=== PATIENT | male | born 1960 | race Caucasian/White ===

== ENCOUNTER 2017-05-31 14:05 | Inpatient (IN) | payer OTHER ==
[~2017-05-31] VITALS: Ht 170.2 cm; Wt 118.0 kg
[2017-05-31] VITALS (9 sets, daily range): BP systolic 112–197; BP diastolic 67–99
[2017-05-31 14:28] LABS: BASOPHIL COUNT 0.1 K/uL (0-0.1); EOSINOPHIL (%) 2.1 % (0-5); EOSINOPHIL COUNT 0.4 K/uL (0-0.3); HEMATOCRIT 50.4 % (38.0-50.0); IMMATURE GRANULOCYTE (%) 0.6 % (0.0-0.7); IMMATURE GRANULOCYTE COUNT 0.1 K/uL; INSTRUMENT ABS NEUTROPHIL CT 9.5 K/uL; LYMPHOCYTE COUNT 5.2 K/uL (1.0-2.8); MCH 26.8 PG (29.0-34.0); MCHC 32.7 G/DL (30.0-36.0); MEAN PLAT.VOLUME 12.5 uM^3 (9.0-12.4); MONOCYTE (%) 8.5 % (3-12); MONOCYTE COUNT 1.4 K/uL (0-0.8); NEUTROPHIL (%) 57.1 % (45-76); NEUTROPHIL COUNT 9.5 K/uL (1.8-6.4); PLATELET COUNT 348 K/uL (156-360); RBC DIS.WIDTH-CV 13.3 % (11.8-14.6); RBC DIS.WIDTH-SD 39.1 % (39-53); RED BLOOD COUNT 6.15 M/uL (4.00-5.50); WHITE BLOOD COUNT 16.7 K/uL (4.1-10.2)
[2017-05-31 15:20] LABS: CHLORIDE 90 mEq/L (99-109); POTASSIUM 2.6 mEq/L (3.7-5.4); SODIUM 134 mEq/L (136-147)
[2017-05-31 15:23] LABS: ANION GAP 25 MEQ/L (2-14)
[2017-05-31 15:26] LABS: GFR ESTIMATE (CALCULATED) 37 mL/min/
[2017-05-31 15:27] LABS: UREA NITROGEN (BUN) 17 mg/dL (9-23)
[2017-05-31 15:28] LABS: ADD MIUA? YES; BILIRUBIN NEGATIVE; BLOOD SMALL; COLOR STRAW ((YELLOW)); GLUCOSE (STRIP) >=500; KETONES NEGATIVE; LEUKOCYTES NEGATIVE; NITRITE NEGATIVE; PROTEIN (STRIP) 100; UROBILINOGEN 0.2 MG/DL (0.2-1.0)
[2017-05-31 15:30] LABS: BACTERIA NONE SEEN /HPF; EPITHELIAL CELLS NONE SEEN /HPF; MUCUS NONE SEEN /LPF; RED BLOOD CELLS 0-5 /HPF (0-5); WHITE BLOOD CELLS 0-5 /HPF (0-5)
[2017-05-31 15:31] LABS: GLUCOSE 761 mg/dL (70-99)
[2017-05-31 15:33] LABS: TROP-I INTERPRETATION NEGATIVE; TROPONIN-I 0.04 ng/mL (0.0-0.30)
[2017-05-31] MEDS ORDERED: BUPROPION XL300 MG PO (16:43)
[2017-05-31] MEDS ORDERED: BUPROPION XL150 MG PO (16:43)
[2017-05-31 17:01] LABS: BICARBONATE 29.4 mEq/L (22-26); CARBOXY HGB 2.2 % (0-5); METHEMOGLOBIN 1.2 % (0-1.5); PCO2 57 mm Hg (35-45); PO2 96 mm Hg (80-100); pH 7.32 (7.35-7.45)
[2017-05-31 17:02] LABS: COMMENTS - BLOOD GASES C+; DEVICE VENT; FI02 50 %; MECHANICAL RATE 14 resp/min; MODE AC; PEEP 5 CM/H20; SITE RR; TIDAL VOLUME 500 ML; TOTAL RESP RATE 18 resp/min
[2017-05-31 19:24] LABS: METH RESISTANT S AUREUS PCR NEGATIVE (NEGATIVE)
[2017-05-31 19:25] LABS: PROBE CHECK PASS; SPECIMEN PROCESSING CONTROL PASS
[2017-05-31 20:31] LABS: ANION GAP 14 MEQ/L (2-14); CHLORIDE 100 MEQ/L (99-109); POTASSIUM 2.8 MEQ/L (3.7-5.4); SAMPLE HEMOLYSIS CHECK 0; SAMPLE ICTERIC CHECK 0; SAMPLE LIPEMIA CHECK 0; SODIUM 135 MEQ/L (136-147)
[2017-05-31 20:39] LABS: GFR ESTIMATE (CALCULATED) > 59 mL/min/; GLUCOSE 529 mg/dL (70-99); UREA NITROGEN (BUN) 16 mg/dL (9-23)
[2017-06-01] VITALS (20 sets, daily range): BP systolic 104–198; BP diastolic 53–105
[2017-06-01 00:28] LABS: POINT-OF-CARE METER ID UU14174217
[2017-06-01 03:06] LABS: GFR ESTIMATE (CALCULATED) 39 mL/min/; GLUCOSE 290 mg/dL (70-99); UREA NITROGEN (BUN) 17 mg/dL (9-23)
[2017-06-01 03:07] LABS: CHLORIDE 104 MEQ/L (99-109); POTASSIUM 2.1 MEQ/L (3.7-5.4); SODIUM 142 MEQ/L (136-147)
[2017-06-01 03:08] LABS: ANION GAP 13 MEQ/L (2-14)
[2017-06-01 04:21] LABS: POINT-OF-CARE METER ID UU13113748
[2017-06-01 04:33] LABS: SODIUM 141 mEq/L (136-147)
[2017-06-01 04:35] LABS: GLUCOSE 156 mg/dL (70-99)
[2017-06-01 04:37] LABS: ANION GAP 12 MEQ/L (2-14)
[2017-06-01 04:39] LABS: GFR ESTIMATE (CALCULATED) 35 mL/min/
[2017-06-01 04:40] LABS: UREA NITROGEN (BUN) 19 mg/dL (9-23)
[2017-06-01 04:41] LABS: CHLORIDE 105 mEq/L (99-109); POTASSIUM 2.3 mEq/L (3.7-5.4)
[2017-06-01 05:27] LABS: POINT-OF-CARE METER ID UU13113748
[2017-06-01 06:05] LABS: HEMATOCRIT 36.9 % (38.0-50.0); MCH 26.7 PG (29.0-34.0); MCHC 33.9 G/DL (30.0-36.0); MCV 78.7 FL (86-99); RBC DIS.WIDTH-CV 13.2 % (11.8-14.6); RBC DIS.WIDTH-SD 37.4 % (39-53); WHITE BLOOD COUNT 13.9 K/uL (4.1-10.2)
[2017-06-01 06:15] LABS: CHLORIDE 104 mEq/L (99-109); SODIUM 141 mEq/L (136-147)
[2017-06-01 06:17] LABS: GLUCOSE 165 mg/dL (70-99)
[2017-06-01 06:18] LABS: ANION GAP 11 MEQ/L (2-14)
[2017-06-01 06:21] LABS: GFR ESTIMATE (CALCULATED) 33 mL/min/
[2017-06-01 06:22] LABS: UREA NITROGEN (BUN) 19 mg/dL (9-23)
[2017-06-01 06:23] LABS: POTASSIUM 2.4 mEq/L (3.7-5.4)
[2017-06-01 06:48] LABS: RED BLOOD COUNT 4.69 M/uL (4.00-5.50)
[2017-06-01 07:41] LABS: POINT-OF-CARE METER ID UU13113748
[2017-06-01 08:36] LABS: POINT-OF-CARE METER ID UU13113748
[2017-06-01 08:44] LABS: PLAT.SUFFICIENCY ADEQUATE
[2017-06-01 08:55] LABS: MEAN PLAT.VOLUME 10.5 uM^3 (9.0-12.4); PLATELET COUNT 239 K/uL (156-360)
[2017-06-01 09:09] LABS: ANION GAP 11 MEQ/L (2-14); CHLORIDE 105 MEQ/L (99-109); GFR ESTIMATE (CALCULATED) 33 mL/min/; GLUCOSE 175 mg/dL (70-99); POTASSIUM 2.5 MEQ/L (3.7-5.4); SAMPLE HEMOLYSIS CHECK 0; SAMPLE ICTERIC CHECK 0; SAMPLE LIPEMIA CHECK 0; SODIUM 142 MEQ/L (136-147); UREA NITROGEN (BUN) 20 mg/dL (9-23)
[2017-06-01 09:50] LABS: POINT-OF-CARE METER ID UU13113748
[2017-06-01 10:35] LABS: POINT-OF-CARE METER ID UU13113748
[2017-06-01 13:03] LABS: ANION GAP 10 MEQ/L (2-14); CHLORIDE 106 MEQ/L (99-109); POINT-OF-CARE METER ID UU13113748; POTASSIUM 2.6 MEQ/L (3.7-5.4); SAMPLE HEMOLYSIS CHECK 1; SAMPLE ICTERIC CHECK 0; SAMPLE LIPEMIA CHECK 0; SODIUM 142 MEQ/L (136-147)
[2017-06-01 13:08] LABS: GFR ESTIMATE (CALCULATED) 26 mL/min/; GLUCOSE 126 mg/dL (70-99); UREA NITROGEN (BUN) 22 mg/dL (9-23)
[2017-06-01 14:10] LABS: POINT-OF-CARE METER ID UU13113748
[2017-06-01 14:36] LABS: MAGNESIUM 2.3 mg/dl (1.3-2.7)
[2017-06-01 15:21] LABS: Estimated Average Glucose 315 mg/dL (70-123); HEMOGLOBIN A1c (GLYCOHEMOGLOB) 12.6 % HGB (Below 5.7)
[2017-06-01 16:38] LABS: ANION GAP 11 MEQ/L (2-14); CHLORIDE 105 MEQ/L (99-109); POTASSIUM 2.9 MEQ/L (3.7-5.4); SAMPLE HEMOLYSIS CHECK 0; SAMPLE ICTERIC CHECK 0; SAMPLE LIPEMIA CHECK 0; SODIUM 140 MEQ/L (136-147)
[2017-06-01 16:43] LABS: GFR ESTIMATE (CALCULATED) 23 mL/min/; UREA NITROGEN (BUN) 23 mg/dL (9-23)
[2017-06-01 16:58] LABS: GLUCOSE 200 mg/dL (70-99)
[2017-06-01 17:25] LABS: POINT-OF-CARE METER ID UU13113748
[2017-06-01 18:34] LABS: POINT-OF-CARE METER ID UU13113748
[2017-06-01 19:20] LABS: POINT-OF-CARE METER ID UU13113748
[2017-06-01 20:25] LABS: POINT-OF-CARE METER ID UU13113748; POINT-OF-CARE USER ID 609231305
[2017-06-01 21:37] LABS: POINT-OF-CARE METER ID UU13113748
[2017-06-01 22:31] LABS: POINT-OF-CARE METER ID UU13113748
[2017-06-01 23:27] LABS: POINT-OF-CARE METER ID UU13113748
[2017-06-02] VITALS (12 sets, daily range): BP systolic 145–200; BP diastolic 66–97
[2017-06-02 00:24] LABS: POINT-OF-CARE METER ID UU13113748
[2017-06-02] MEDS ORDERED: LISINOPRIL5 MG PO (00:35)
[2017-06-02] MEDS ORDERED: PRAVASTATIN SOD40 MG PO (00:37)
[2017-06-02] MEDS ORDERED: NIFEDIPINE ER60 MG PO (00:40)
[2017-06-02] MEDS ORDERED: METOPROLOL SUC100 MG PO (00:41)
[2017-06-02 01:17] LABS: POINT-OF-CARE METER ID UU14162636
[2017-06-02 02:30] LABS: POINT-OF-CARE METER ID UU14162636
[2017-06-02 03:27] LABS: POINT-OF-CARE METER ID UU14162636
[2017-06-02 04:29] LABS: POINT-OF-CARE METER ID UU14162636
[2017-06-02 05:44] LABS: BASOPHIL COUNT 0.1 K/uL (0-0.1); EOSINOPHIL (%) 1.2 % (0-5); EOSINOPHIL COUNT 0.2 K/uL (0-0.3); HEMATOCRIT 39.4 % (38.0-50.0); IMMATURE GRANULOCYTE (%) 0.5 % (0.0-0.7); IMMATURE GRANULOCYTE COUNT 0.1 K/uL; INSTRUMENT ABS NEUTROPHIL CT 12.5 K/uL; LYMPHOCYTE COUNT 1.6 K/uL (1.0-2.8); MCH 27.5 PG (29.0-34.0); MCHC 34.5 G/DL (30.0-36.0); MCV 79.6 FL (86-99); MEAN PLAT.VOLUME 11.2 uM^3 (9.0-12.4); MONOCYTE (%) 9.5 % (3-12); MONOCYTE COUNT 1.5 K/uL (0-0.8); NEUTROPHIL (%) 78.4 % (45-76); NEUTROPHIL COUNT 12.5 K/uL (1.8-6.4); PLATELET COUNT 236 K/uL (156-360); RBC DIS.WIDTH-CV 13.8 % (11.8-14.6); RBC DIS.WIDTH-SD 39.3 % (39-53); RED BLOOD COUNT 4.95 M/uL (4.00-5.50); WHITE BLOOD COUNT 15.9 K/uL (4.1-10.2)
[2017-06-02 06:36] LABS: ANION GAP 13 MEQ/L (2-14); CHLORIDE 105 MEQ/L (99-109); GFR ESTIMATE (CALCULATED) 18 mL/min/; GLUCOSE 138 mg/dL (70-99); POTASSIUM 2.6 MEQ/L (3.7-5.4); SAMPLE HEMOLYSIS CHECK 0; SAMPLE ICTERIC CHECK 0; SAMPLE LIPEMIA CHECK 0; SODIUM 141 MEQ/L (136-147); UREA NITROGEN (BUN) 25 mg/dL (9-23)
[2017-06-02 08:40] LABS: MAGNESIUM 2.3 mg/dl (1.3-2.7)
[2017-06-02 10:05] LABS: UR CREATININE CONCENTRATION 256.5 MG/DL
[2017-06-02 11:25] LABS: POINT-OF-CARE METER ID UU14174216; POINT-OF-CARE USER ID NUTSLF44
[2017-06-02 20:46] LABS: POINT-OF-CARE METER ID UU13113781
[2017-06-03] VITALS (7 sets, daily range): BP systolic 136–175; BP diastolic 76–96
[2017-06-03 03:58] LABS: UR CREATININE CONCENTRATION 33.9 MG/DL
[2017-06-03 06:03] LABS: ANION GAP 14 MEQ/L (2-14); CHLORIDE 99 MEQ/L (99-109); GFR ESTIMATE (CALCULATED) 20 mL/min/; POTASSIUM 3.1 MEQ/L (3.7-5.4); SAMPLE HEMOLYSIS CHECK 0; SAMPLE ICTERIC CHECK 0; SAMPLE LIPEMIA CHECK 0; SODIUM 139 MEQ/L (136-147); UREA NITROGEN (BUN) 28 mg/dL (9-23); URIC ACID 6.1 mg/dL (3.1-9.2)
[2017-06-03 06:08] LABS: GLUCOSE 300 mg/dL (70-99)
[2017-06-03 06:55] LABS: BASOPHIL COUNT 0.1 K/uL (0-0.1); EOSINOPHIL (%) 3.1 % (0-5); EOSINOPHIL COUNT 0.4 K/uL (0-0.3); HEMATOCRIT 45.2 % (38.0-50.0); IMMATURE GRANULOCYTE (%) 0.5 % (0.0-0.7); IMMATURE GRANULOCYTE COUNT 0.1 K/uL; INSTRUMENT ABS NEUTROPHIL CT 9.1 K/uL; LYMPHOCYTE COUNT 1.6 K/uL (1.0-2.8); MCH 26.5 PG (29.0-34.0); MCHC 33.6 G/DL (30.0-36.0); MCV 78.7 FL (86-99); MEAN PLAT.VOLUME 10.6 uM^3 (9.0-12.4); MONOCYTE (%) 7.8 % (3-12); MONOCYTE COUNT 0.9 K/uL (0-0.8); NEUTROPHIL (%) 74.8 % (45-76); NEUTROPHIL COUNT 9.1 K/uL (1.8-6.4); PLATELET COUNT 285 K/uL (156-360); RBC DIS.WIDTH-CV 13.8 % (11.8-14.6); RBC DIS.WIDTH-SD 39.3 % (39-53); RED BLOOD COUNT 5.74 M/uL (4.00-5.50); WHITE BLOOD COUNT 12.1 K/uL (4.1-10.2)
[2017-06-03 07:39] LABS: POINT-OF-CARE METER ID UU13113781; POINT-OF-CARE USER ID NUTSLF44
[2017-06-03 11:49] LABS: POINT-OF-CARE METER ID UU13113781; POINT-OF-CARE USER ID NUTSLF44
[2017-06-03] MEDS ORDERED: WELLBUTRIN XL150 MG PO (13:45)
[2017-06-03 17:00] LABS: POINT-OF-CARE USER ID NUTSLF44
[2017-06-04 04:00] VITALS: BP 154/79
[2017-06-04 05:39] LABS: EOSINOPHIL (%) 4.5 % (0-5); EOSINOPHIL COUNT 0.4 K/uL (0-0.3); IMMATURE GRANULOCYTE (%) 0.6 % (0.0-0.7); IMMATURE GRANULOCYTE COUNT 0.1 K/uL; INSTRUMENT ABS NEUTROPHIL CT 6.2 K/uL; LYMPHOCYTE COUNT 2.1 K/uL (1.0-2.8); MCHC 33.8 G/DL (30.0-36.0); MONOCYTE (%) 10.7 % (3-12); MONOCYTE COUNT 1.1 K/uL (0-0.8); NEUTROPHIL (%) 62.8 % (45-76); NEUTROPHIL COUNT 6.2 K/uL (1.8-6.4); PLATELET COUNT 278 K/uL (156-360); RBC DIS.WIDTH-CV 13.6 % (11.8-14.6); RBC DIS.WIDTH-SD 39.8 % (39-53); RED BLOOD COUNT 5.25 M/uL (4.00-5.50); WHITE BLOOD COUNT 9.8 K/uL (4.1-10.2)
[2017-06-04 06:07] LABS: ANION GAP 14 MEQ/L (2-14); CHLORIDE 98 MEQ/L (99-109); GFR ESTIMATE (CALCULATED) 24 mL/min/; GLUCOSE 261 mg/dL (70-99); POTASSIUM 3.2 MEQ/L (3.7-5.4); SAMPLE HEMOLYSIS CHECK 0; SAMPLE ICTERIC CHECK 0; SAMPLE LIPEMIA CHECK 0; SODIUM 136 MEQ/L (136-147); UREA NITROGEN (BUN) 30 mg/dL (9-23)
[2017-06-04 08:10] VITALS: BP 171/98
[2017-06-04 08:13] LABS: MAGNESIUM 1.6 mg/dl (1.3-2.7)
[2017-06-04] MEDS ORDERED: APRESOLINE100 MG PO (12:29)
[2017-06-04] MEDS ORDERED: LEVETIRACETAM500 MG PO (12:29)
[2017-06-06 11:51] LABS: Metanephrine,Plasma <25 pg/mL (<=57)
== END 2017-06-04 13:15 | disposition home or self-care (01) | DRG 637 ==
LOC: EME 14:05 → EDOF 16:29 → 4EAST 16:29 → EDOF 16:29 → 4WEST 16:29 → ENRESERV 06-02 07:00 → 4EAST 06-02 07:55
PROVIDERS: Emergency Medicine; Internal Medicine; Internal Medicine Critical Care Medicine; Internal Medicine Nephrology
PROC: 5A1935Z Respiratory Ventilation, Less than 24 Consecutive Hours (ICD-10-PCS; principal; 2017-05-31)
PROC: 0BH17EZ Insertion of Endotracheal Airway into Trachea, Via Natural or Artificial Opening (ICD-10-PCS; 2017-05-31)
DX: E11.01 Type 2 diabetes mellitus with hyperosmolarity with coma (principal); J96.01 Acute respiratory failure with hypoxia; N17.0 Acute kidney failure with tubular necrosis; I46.9 Cardiac arrest, cause unspecified; Z68.41 Body mass index [BMI] 40.0-44.9, adult; E87.2 Acidosis; Z91.14 Patient's other noncompliance with medication regimen; E87.6 Hypokalemia; E66.01 Morbid (severe) obesity due to excess calories; G47.33 Obstructive sleep apnea (adult) (pediatric); R32 Unspecified urinary incontinence; R23.0 Cyanosis; D75.1 Secondary polycythemia; N18.3 Chronic kidney disease, stage 3 (moderate); E11.65 Type 2 diabetes mellitus with hyperglycemia; E11.22 Type 2 diabetes mellitus with diabetic chronic kidney disease; I16.0 Hypertensive urgency; I15.9 Secondary hypertension, unspecified; G40.401 Other generalized epilepsy and epileptic syndromes, not intractable, with status epilepticus; E78.5 Hyperlipidemia, unspecified; Z79.84 Long term (current) use of oral hypoglycemic drugs; Z91.19 Patient's noncompliance with other medical treatment and regimen; Z79.4 Long term (current) use of insulin; Z96.652 Presence of left artificial knee joint; Z96.641 Presence of right artificial hip joint
CPT/HCPCS: 36600; 70450; 71010; 76770; 80048; 80048 91; 81003; 82088 90; 82436; 82550; 82570; 82803; 82948; 83036; 83605; 83735; 83835 90; 83935; 84100; 84133; 84156; 84244 90; 84300; 84484; 84550; 85025; 85027; 87070; 87205; 87641; 93005; 93880; 94002; 95819; 99281; 99285; J0360; J1644; J1815; J1953; J2060; J2250; J2704; J3010; J3480; J7030; J7050